=== PATIENT | female | born 1985 | race Caucasian/White ===

== ENCOUNTER 2016-11-08 10:42 | Day surgery (SDC) | payer OTHER ==
[~2016-11-08] VITALS: Ht 162.6 cm; Wt 55.5 kg
[~2016-11-08 10:42] MED LIST: DEXAMETHASONE SOD PHOS 4 MG/ML VIAL IVP ONE; DSS100 PO; FERR-89 PO; FentaNYL CITRATE-PF 100 MCG/2 ML VIAL IVP ONE; IBUP-1547 PO; KETOROLAC TROMETHAMINE 60 MG/2 ML VIAL IM ONE; LIDOCAINE HCL/PF 2% 5 ML VIAL IM ONE; MIDAZOLAM HCL 2 MG/2 ML VIAL IVP ONE; ONDANSETRON HCL 4 MG/2 ML VIAL IVP ONE; PERCT PO; PREN1TAB80 PO; PROPOFOL 1% 20 ML VIAL IVP ONE; RINGERS SOLUTION,LACTATED 1,000 ML IV ONE
[2016-11-08] MEDS ORDERED: RINGERS SOLUTION,LACTATED 1,000 ML IV ONE ×2 (11:00→13:38)
[2016-11-08 11:13] LABS: BASOPHILS % (AUTO) 0.4 % (0.0-2.0); EOSINOPHILS % (AUTO) 1.4 % (1.0-6.0); HEMATOCRIT 36.6 % (36-46); HEMOGLOBIN 12.5 g/dL (12.0-16.0); LYMPHOCYTES # (AUTO) 2.7 K/uL (1.0-4.8); LYMPHOCYTES % (AUTO) 35.2 % (22.0-44.0); MEAN CORPUSCULAR HEMOGLOBIN 30.3 pg (26.0-34.0); MEAN CORPUSCULAR HGB CONC 34.3 G/dL (31.0-37.0); MEAN CORPUSCULAR VOLUME 88 fL (80-100); MONOCYTES # (AUTO) 0.4 K/uL (0.1-1.0); MONOCYTES % (AUTO) 5.7 % (2.0-9.0); NEUTROPHILS # (AUTO) 4.3 K/uL (1.8-7.7); NEUTROPHILS % (AUTO) 57.3 % (40.0-70.0); PLATELET COUNT (AUTO) 309 K/uL (150-450); RED BLOOD CELL COUNT(AUTO) 4.14 MIL/uL (4.00-5.20); RED CELL DISTRIBUTION WIDTH 12.8 % (11.5-14.5); WHITE BLOOD COUNT (AUTO) 7.5 K/uL (4.5-11.0)
[2016-11-08 11:18] LABS: APPEARANCE,URINE SL CLOUDY (CLEAR); GLUCOSE, URINE (UA) NEGATIVE (NEGATIVE); KETONES,URINE NEGATIVE (NEGATIVE); LEUKOCYTE ESTERASE ,URINE LARGE (NEGATIVE); OCCULT BLOOD,URINE NEGATIVE (NEGATIVE); PH,URINE 7.5 (5.0-8.0); PROTEIN,URINE NEGATIVE (NEGATIVE)
[2016-11-08 11:19] LABS: ADD UA MICROSCOPIC YES
[2016-11-08 11:23] LABS: RBC,URINE 0-2 /HPF (0-2); SQUAMOUS EPITHELIAL CELL,UR Moderate /LPF (None Seen)
[2016-11-08] MEDS ORDERED: METHYLERGONOVINE MALEATE 0.2 MG/ML VIAL ONE (13:15)
[2016-11-08] MEDS ORDERED: HYDROmorphone 2 MG/ML SYRINGE IVP PRN (14:30)
[2016-11-08] MEDS ORDERED: OXYGEN THERAPY IH SCH (14:30)
[2016-11-08] MEDS ORDERED: FentaNYL CITRATE-PF 100 MCG/2 ML VIAL IVP PRN (14:30)
[2016-11-08] MEDS ORDERED: MEPERIDINE-PF 25 MG/ML SYRINGE IVP PRN (14:30)
== END 2016-11-08 16:10 | disposition home or self-care (01) ==
LOC: SURGERY 10:42
PROVIDERS: ATTEND Obstetrics & Gynecology
DX: O02.1 Missed abortion (principal); Z98.890 Other specified postprocedural states
CPT/HCPCS: 36415; 59821; 81001; 85025; 87086; 88305; J1100; J1885; J2210; J2250; J2405; J2704; J3010; J3490; J7120

== ENCOUNTER 2024-05-26 16:16 | Emergency (ER) | payer MEDICAID, OTHER ==
[~2024-05-26] VITALS: Ht 167.6 cm; Wt 65.9 kg
[2024-05-26 16:28] VITALS: BP 101/68; PULSE 132; RESP 18; TEMP 99.2; O2SAT 100
[2024-05-26 16:50] LABS: COVID AG,FIA SOURCE NASAL SWAB
[2024-05-26 16:53] LABS: APPEARANCE,URINE HAZY (CLEAR); BILIRUBIN,URINE NEGATIVE (NEGATIVE); COLOR,URINE YELLOW (YELLOW); GLUCOSE, URINE (UA) NEGATIVE (NEGATIVE); KETONES,URINE 40-60 mg/dL (NEGATIVE); LEUKOCYTE ESTERASE ,URINE SMALL (NEGATIVE); NITRATE,URINE NEGATIVE (NEGATIVE); OCCULT BLOOD,URINE SMALL (NEGATIVE); PH,URINE 5.5 (5.0-8.0); PROTEIN,URINE 30-70 mg/dL (NEGATIVE); SPECIFIC GRAVITIY, URINE 1.026 (1.003-1.030); UROBILINOGEN,URINE <=1.0 mg/dL (<=1.0)
[2024-05-26 17:03] LABS: BACTERIA,URINE Moderate /HPF (None Seen); SQUAMOUS EPITHELIAL CELL,UR Many /LPF (None Seen)
[2024-05-26 17:09] LABS: INFLUENZA TYPE A NEGATIVE FOR TYPE A (NEGATIVE); INFLUENZA TYPE B NEGATIVE FOR TYPE B (NEGATIVE); SARS-COV2 (COVID) ANTIGEN,FIA Negative (Negative)
[2024-05-26] MEDS ORDERED: AMOX250C4 PO (20:30)
[2024-05-26] MEDS ORDERED: BENZ-227 PO (20:30)
[2024-05-26] MEDS: ONDANSETRON 4 MG TABLET PO ONE (20:45)
== END 2024-05-26 20:50 | disposition home or self-care (01) ==
LOC: EMS 16:22
DX: J18.0 Bronchopneumonia, unspecified organism (principal); Z20.822 Contact with and (suspected) exposure to COVID-19
CPT/HCPCS: 99284; 71045; 87426; 81001; 87086; 87804; Q0162